=== PATIENT | female | born 1970 | race Caucasian/White ===

== ENCOUNTER 2018-11-05 21:33 | Emergency (ER) | payer OTHER ==
[2018-11-05 21:52] VITALS: RESP 18
[2018-11-05] MEDS ORDERED: KETOROLAC TROMETHAMINE 30 MG/ML SOL IM ONE (22:27)
[2018-11-05] MEDS ORDERED: CEFTRIAXONE 1 GM PDS IM ONE (22:27)
[2018-11-05] MEDS ORDERED: CLINDAMYCIN HYDROCHLORIDE 150 MG CAP PO SCH (22:30)
[2018-11-05] MEDS ORDERED: CEFTRIAXONE 1 GM PDS ONE (22:34)
[2018-11-05] MEDS ORDERED: KETOROLAC TROMETHAMINE 30 MG/ML SOL ONE (22:34)
[2018-11-05] MEDS ORDERED: LIDOCAINE HCL 1% MPF 30 SOL ONE (22:37)
[2018-11-05] MEDS ORDERED: ACETAMI/HYDROCO 325/10 TAB PO ONE (22:48)
[2018-11-05] MEDS ORDERED: APAP/HYDROCODONE 1 EACH TABLET ONE (22:57)
[2018-11-05 23:18] VITALS: BP 139/87; PULSE 86; TEMP 97.7; O2SAT 98
== END 2018-11-05 23:15 | disposition home or self-care (01) | DRG 603 ==
LOC: ED 21:33
DX: L08.9 Local infection of the skin and subcutaneous tissue, unspecified (principal)
CPT/HCPCS: 96372; 99282; 99283; J0696; J1885; A9270-GY; J2001